=== PATIENT | female | born 1950 | race Caucasian/White ===

== ENCOUNTER 2023-02-02 11:34 | Inpatient (IN) | payer MEDICARE, OTHER ==
[2023-02-02 11:53] LABS: Basophils % (A) 1 %; Eosinophils % (A) 1 %; HCT 32.7 % (34.0-46.0); HGB 10.6 gm/dL (11.4-16.0); Hypochromasia Slight; Lymphocytes # (A) 0.8 k/uL (1.0-4.8); Lymphocytes % (A) 22 %; MCH 28.6 pg (25.0-35.0); MCHC 32.5 g/dL (31.0-37.0); MCV 88.1 fL (80.0-100.0); Mean Platelet Volume 7.7; Monocytes # (A) 0.3 k/uL (0-1.0); Monocytes % (A) 8 %; Neutrophils # (A) 2.5 k/uL (1.3-7.7); Neutrophils % (A) 65 %; Platelet Count 336 k/uL (150-450); Poikilocytosis Slight; RBC 3.71 m/uL (3.80-5.40); RDW 14.2 % (11.5-15.5); WBC 3.8 k/uL (3.8-10.6)
--- NOTE | 2023-02-02 12:00 | CT ---
EXAMINATION TYPE: CT brain wo con for TPA DATE OF EXAM: 02/02/2023 HISTORY: cva. Acute onset neurologic deficit. CT DLP: 1206.6 mGycm. Automated Exposure Control for Dose Reduction was Utilized. TECHNIQUE: CT scan of the head is performed without contrast. COMPARISON: None. FINDINGS: There is no acute intracranial hemorrhage or midline shift identified. There is mild diff use ventricular and sulcal prominence. Arce-white matter differentiation fairly well-preserved. Moder ate mucosal thickening with dependent fluid in the right maxillary sinus. The globes are intact bila terally. IMPRESSION: No acute intracranial hemorrhage or midline shift. There is mild diffuse cerebral atrop hy. There is acute on chronic right maxillary sinus disease.
--- NOTE | 2023-02-02 12:04 | ED ---
General Adult HPI - General Chief complaint: Neuro Symptoms/Deficit Stated complaint: Stroke Time Seen by Provider: 02/02/23 11:39 Source: patient, EMS, RN notes reviewed Mode of arrival: EMS Limitations: no limitations - History of Present Illness Initial comments: Patient is a pleasant 72-year-old female presenting to the emergency department with concern with weakness. Onset of symptoms was around 10:30, an hour prior to arrival. Patient was driving to go shopping. Patient felt sudden funny feeling and weakness left face and left arm. Symptoms have improved. Left arm feels back to normal at this time. No confusion or speech problems. No history of similar symptoms previously. - Related Data Home Medications Medication Instructions Recorded Confirmed Ascorbic Acid [Vitamin C] 1,000 mg PO DAILY 02/02/23 02/02/23 Cholecalciferol [Vitamin D3 (25 50 mcg PO DAILY 02/02/23 02/02/23 Mcg = 1000 Iu)] Multivit-Min/Iron/Folic/Lutein 1 tab PO DAILY 02/02/23 02/02/23 [Centrum Silver Women Tablet] Allergies Allergy/AdvReac Type Severity Reaction Status Date / Time iron Allergy Unknown Verified 02/02/23 13:03 methylprednisolone Allergy Unknown Verified 02/02/23 13:03 [From Medrol] Sulfa (Sulfonamide Allergy Unknown Verified 02/02/23 13:03 Antibiotics) Review of Systems ROS Statement: Those systems with pertinent positive or pertinent negative responses have been documented in the HPI. ROS Other: All systems not noted in ROS Statement are negative. Constitutional: Denies: fever Eyes: Denies: eye pain ENT: Denies: ear pain Respiratory: Denies: cough Cardiovascular: Denies: chest pain Endocrine: Denies: fatigue Gastrointestinal: Denies: abdominal pain Genitourinary: Denies: urgency Musculoskeletal: Denies: back pain Skin: Denies: rash Neurological: Reports: as per HPI, weakness. Denies: headache, confusion Past Medical History Past Medical History: No Reported History History of Any Multi-Drug Resistant Organisms: None Reported Past Surgical History: Orthopedic Surgery Additional Past Surgical History / Comment(s): Sinus surgery, wrist surgery, knee surgery, Past Psychological History: Anxiety Smoking Status: Never smoker Past Alcohol Use History: Rare Past Drug Use History: None Reported General Exam Limitations: no limitations General appearance: alert, in no apparent distress Head exam: Present: normocephalic Eye exam: Present: normal appearance, PERRL, EOMI ENT exam: Present: normal oropharynx Neck exam: Present: normal inspection Respiratory exam: Present: normal lung sounds bilaterally Cardiovascular Exam: Present: regular rate, normal rhythm GI/Abdominal exam: Present: soft. Absent: tenderness Extremities exam: Present: normal inspection Neurological exam: Present: alert, oriented X3, CN II-XII intact (Except for left facial weakness that does not involve the forehead) Expanded Neurological exam: Present: protecting the airway Speech: Present: fluid speech Cranial nerves: EOM's Intact: Normal, Facial Sensation: Normal, Facial Palsy with Forehead Movement: Abnormal Left (Left facial weakness. Forehead moves normally) Sensory exam: Upper Extremity Light Touch: Normal, Lower Extremity Light Touch: Normal Motor strength exam: RUE: 5, LUE: 5, RLE: 5, LLE: 5 Eye Response: (4) open spontaneously Motor Response: (6) obeys commands Verbal Response: (5) oriented Psychiatric exam: Present: normal affect, normal mood Skin exam: Present: normal color Course Vital Signs 02/02/23 02/02/23 02/02/23 11:58 12:00 12:10 Temperature 98.2 F Pulse Rate 92 92 88 Respiratory 18 18 18 Rate Blood Pressure 145/69 137/68 130/78 O2 Sat by Pulse 98 98 98 Oximetry 02/02/23 13:01 Temperature 98.2 F Pulse Rate 80 Respiratory 18 Rate Blood Pressure 131/68 O2 Sat by Pulse 97 Oximetry - Reevaluation(s) Reevaluation #1: 02/02/23 12:02 Case was discussed with Dr. Arroyo who agrees risks outweigh the benefit as NIH is only 1. Therefore TPA will not be provided EKG Findings - EKG Results: EKG: interpreted by ERMD, sinus rhythm, normal axis, normal QRS, normal ST/T Medical Decision Making - Medical Decision Making Was pt. sent in by a medical professional or institution (, PA, BOBBIN FIXER, urgent care, hospital, or usp...) When possible be specific @ -No Did you speak to anyone other than the patient for history (EMS, parent, family, police, friend...)? What history was obtained from this source @ -EMS helps provide history Did you review nursing and triage notes (agree or disagree)? Why? @ -I reviewed and agree with nursing and triage notes Were old charts reviewed (outside hosp., previous admission, EMS record, old EKG, old radiological studies, urgent care reports/EKG's, usp records)? Report findings @ -No old charts were reviewed Differential Diagnosis (chest pain, altered mental status, abdominal pain women, abdominal pain men, vaginal bleeding, weakness, fever, dyspnea, syncope, headache, dizziness, GI bleed, back pain, seizure, CVA, palpatations, mental health)? @ -Differential Weakness: Hypoglycemia, shock, sepsis, hyponatremia, anemia, infection, CO, ETOH, adverse medicine reaction, overdose, stroke, this is not meant to be an all-inclusive list. EKG interpreted by me (3pts min.). @ -As above X-rays interpreted by me (1pt min.). @ -None done CT interpreted by me (1pt min.). @ -CT report reviewed U/S interpreted by me (1pt. min.). @ -None done What testing was considered but not performed or refused? (CT, X-rays, U/S, labs)? Why? @ -None What meds were considered but not given or refused? Why? @ -TPA was considered however patient is not felt to be candidate secondary to low NIH Did you discuss the management of the patient with other professionals (professionals i.e. , PA, BOBBIN FIXER, lab, RT, psych nurse, manager social media, assayer helper, teacher, commissioned security officer, caseworker intake)? Give summary @ -I did speak with Dr. Mitchell who agrees patient is not a TPA candidate. Was smoking cessation discussed for >3mins.? @ -No Was critical care preformed (if so, how long)? @ -Critical care 32 minutes Were there social determinants of health that impacted care today? How? (H omelessness, low income, unemployed, alcoholism, drug addiction, transportation, low edu. Level, literacy, decrease access to med. care, senior living, rehab)? @ -No Was there de-escalation of care discussed even if they declined (Discuss DNR or withdrawal of care, Hospice)? DNR status @ -No What co-morbidities impacted this encounter? (DM, HTN, Smoking, COPD, CAD, Cancer, CVA, ARF, Chemo, Hep., AIDS, mental health diagnosis, sleep apnea, morbid obesity)? @ -None Was patient admitted / discharged? Hospital course, mention meds given and route, prescriptions, significant lab abnormalities, going to OR and other pertinent info. @ -Patient reevaluated and slightly further improved. Symptoms have not completely resolved however. Patient is updated on results and plan. Case was discussed with Dr. foreman, who will admit covering hospital call. Neurology will be placed on consult. Undiagnosed new problem with uncertain prognosis? @ -No Drug Therapy requiring intensive monitoring for toxicity (Heparin, Nitro, Insulin, Cardizem)? @ -No Were any procedures done? @ -No Diagnosis/symptom? @ -CVA Acute, or Chronic, or Acute on Chronic? @ -Acute Uncomplicated (without systemic symptoms) or Complicated (systemic symptoms)? @ -default Side effects of treatment? @ -No Exacerbation, Progression, or Severe Exacerbation? @ -No Poses a threat to life or bodily function? How? (Chest pain, USA, CO, pneumonia, PE, COPD, DKA, ARF, appy, cholecystitis, CVA, Diverticulitis, Homicidal, Suicidal, threat to staff... and all critical care pts) @ -No - Lab Data Result diagrams: 02/02/23 11:39 02/02/23 11:39 Lab Results 02/02/23 02/02/23 02/02/23 Range/Units 11:39 11:39 11:39 WBC 3.8 (3.8-10.6) k/uL RBC 3.71 L (3.80-5.40) m/uL Hgb 10.6 L (11.4-16.0) gm/dL Hct 32.7 L (34.0-46.0) % MCV 88.1 (80.0-100.0) fL MCH 28.6 (25.0-35.0) pg MCHC 32.5 (31.0-37.0) g/dL RDW 14.2 (11.5-15.5) % Plt Count 336 (150-450) k/uL MPV 7.7 Neutrophils % 65 % Lymphocytes % 22 % Monocytes % 8 % Eosinophils % 1 % Basophils % 1 % Neutrophils # 2.5 (1.3-7.7) k/uL Lymphocytes # 0.8 L (1.0-4.8) k/uL Monocytes # 0.3 (0-1.0) k/uL Eosinophils # 0.0 (0-0.7) k/uL Basophils # 0.0 (0-0.2) k/uL Hypochromasia Slight Poikilocytosis Slight PT 9.7 (9.0-12.0) sec INR 0.9 (<1.2) APTT 20.5 L (22.0-30.0) sec Sodium 140 (137-145) mmol/L Potassium 3.5 (3.5-5.1) mmol/L Chloride 106 (98-107) mmol/L Carbon Dioxide 27 (22-30) mmol/L Anion Gap 7 mmol/L BUN 12 (7-17) mg/dL Creatinine 0.73 (0.52-1.04) mg/dL Est GFR (CKD-EPI)AfAm >90 (>60 ml/min/1.73 sqM) Est GFR (CKD-EPI)NonAf 84 (>60 ml/min/1.73 sqM) Glucose 122 H (74-99) mg/dL Calcium 9.1 (8.4-10.2) mg/dL Total Bilirubin 0.3 (0.2-1.3) mg/dL AST 29 (14-36) U/L ALT 29 (4-34) U/L Alkaline Phosphatase 84 (38-126) U/L Creatine Kinase (30-135) U/L Total Protein 6.5 (6.3-8.2) g/dL Albumin 4.1 (3.5-5.0) g/dL 02/02/23 Range/Units 11:39 WBC (3.8-10.6) k/uL RBC (3.80-5.40) m/uL Hgb (11.4-16.0) gm/dL Hct (34.0-46.0) % MCV (80.0-100.0) fL MCH (25.0-35.0) pg MCHC (31.0-37.0) g/dL RDW (11.5-15.5) % Plt Count (150-450) k/uL MPV Neutrophils % % Lymphocytes % % Monocytes % % Eosinophils % % Basophils % % Neutrophils # (1.3-7.7) k/uL Lymphocytes # (1.0-4.8) k/uL Monocytes # (0-1.0) k/uL Eosinophils # (0-0.7) k/uL Basophils # (0-0.2) k/uL Hypochromasia Poikilocytosis PT (9.0-12.0) sec INR (<1.2) APTT (22.0-30.0) sec Sodium (137-145) mmol/L Potassium (3.5-5.1) mmol/L Chloride (98-107) mmol/L Carbon Dioxide (22-30) mmol/L Anion Gap mmol/L BUN (7-17) mg/dL Creatinine (0.52-1.04) mg/dL Est GFR (CKD-EPI)AfAm (>60 ml/min/1.73 sqM) Est GFR (CKD-EPI)NonAf (>60 ml/min/1.73 sqM) Glucose (74-99) mg/dL Calcium (8.4-10.2) mg/dL Total Bilirubin (0.2-1.3) mg/dL AST (14-36) U/L ALT (4-34) U/L Alkaline Phosphatase (38-126) U/L Creatine Kinase 77 (30-135) U/L Total Protein (6.3-8.2) g/dL Albumin (3.5-5.0) g/dL Critical Care Time Critical Care Time: Yes Total Critical Care Time: 32 Disposition Clinical Impression: Cerebrovascular accident (CVA) Disposition: ADMITTED IP TO THIS [facility] Is patient prescribed a controlled substance at d/c from ED?: No Referrals: None,Stated [Primary Care Provider] - 1-2 days Time of Disposition: 13:23
[2023-02-02 12:08] LABS: ALT 29 U/L (4-34); AST 29 U/L (14-36); African American GFR (CKD) >90 (>60 ml/min/1.73 sqM); Albumin 4.1 g/dL (3.5-5.0); Alkaline Phosphatase 84 U/L (38-126); Anion Gap 7 mmol/L; Blood Urea Nitrogen 12 mg/dL (7-17); Calcium 9.1 mg/dL (8.4-10.2); Carbon Dioxide 27 mmol/L (22-30); Chloride 106 mmol/L (98-107); Glucose 122 mg/dL (74-99); Non-African American GFR(CKD) 84 (>60 ml/min/1.73 sqM); Potassium 3.5 mmol/L (3.5-5.1); Sodium 140 mmol/L (137-145); Total Bilirubin 0.3 mg/dL (0.2-1.3); Total Protein 6.5 g/dL (6.3-8.2)
[2023-02-02 12:13] LABS: INR 0.9 (<1.2); Prothrombin Time 9.7 sec (9.0-12.0)
[2023-02-02 12:22] LABS: Partial Thromboplastin Time 20.5 sec (22.0-30.0)
--- NOTE | 2023-02-02 12:32 | CT ---
EXAMINATION TYPE: CT angio head neck DATE OF EXAM: 02/02/2023 COMPARISON: CT brain same day HISTORY: 72-year-old female, weakness, CVA TECHNIQUE: Contiguous axial scanning of the head and neck performed with IV Contrast, patient injecte d with 65cc mL of Isovue 370. Coronal/sagittal reconstructions performed. 3-D reconstructions generat ed on a dedicated workstation. CT DLP: 462.9 mGycm Automated exposure control for dose reduction was used. FINDINGS: NECK: There appears to be a large hiatal hernia extending to the subcarinal level. Some nodular prominence to the left lingual tonsil. Calcifications in the region of the bilateral pal atine tonsils suggests sequela of prior infection. Conventional arterial muscle branching anatomy. Vertebral arteries are patent throughout their course. Tortuous right common carotid artery. There is retropharyngeal course of the bilateral common carotid arteries. The bilateral common and in ternal carotid arteries are widely patent by NASCET criteria. [id number] degenerative change mid to lower cervical spine. HEAD: The vertebral and basilar arteries as well as the remainder of the posterior circulation appears patel nt. There is a small right posterior communicating artery visualized. The internal carotid arteries and remainder of the anterior circulation is patent. No aneurysmal change is identified. Dural venous sinuses appear patent. IMPRESSION: 1. NECK: WIDELY PATENT VERTEBRAL AND CAROTID ARTERIES OF THE NECK. THERE APPEARS TO BE A LARGE UNDERL KEVIN HIATAL HERNIA. CORRELATE FOR ANY ASSOCIATED SYMPTOMS. 2. HEAD: NO LARGE VESSEL INTRACRANIAL ARTERIAL OCCLUSION, SIGNIFICANT STENOSIS, OR ANEURYSMAL CHANGE IS SEEN.
--- NOTE | 2023-02-02 12:52 | XR ---
EXAMINATION TYPE: XR chest 2V DATE OF EXAM: 02/02/2023 COMPARISON: NONE HISTORY: Altered mental status and weakness. TECHNIQUE: Frontal and lateral views of the chest are obtained. FINDINGS: There is no focal air space opacity, pleural effusion, or pneumothorax seen. The cardiac silhouette size is mildly enlarged. Retrocardiac opacity consistent with large size hiatal hernia or intrathoracic stomach is present. Overlying EKG leads. The osseous structures are intact. IMPRESSION: Mild cardiomegaly without acute pulmonary process. Large hiatal hernia noted.
[2023-02-02] MEDS ORDERED: ASPIRIN 325 MG TAB PO STA (13:23)
[2023-02-02] MEDS: SODIUM CHLORIDE 0.9% 1,000 ML IV SCH ×2 (13:37→23:19)
[2023-02-02] MEDS ORDERED: PANTOPRAZOLE 40 MG/10 ML VIAL IVP STA (13:49)
[2023-02-02] MEDS ORDERED: LABETALOL 5 MG/ML VIAL MDV IVP PRN (13:58)
[2023-02-02] MEDS ORDERED: ACETAMINOPHEN TAB 325 MG TAB PO PRN (13:58)
--- NOTE | 2023-02-02 14:03 | P.HPIM ---
History of Present Illness H&P Date: 02/02/23 Patient is a 72-year-old female who presented to the ER department with left-sided facial droop. In the ER code stroke was activated. She had an NIH of 1 and therefore the stroke network did not recommend TPA administration. CT head and CT head and neck were unremarkable. Vital signs within normal limits. Patient seen and examined at bedside. She reports that she was driving to go shopping today and all of a sudden felt "terrible". She describes a heaviness on the left side of her chest associated with numbness and tingling down into her left arm and into her left face. She also felt some heaviness in her left arm. She did feel slightly short of breath. She also felt lightheaded. Her chest pain is now intermittent, her fce and arm numbness is better but not reso lved completely. Over the weekend she describes some left-sided abdominal pain. She did have emesis 1 which she describes as dark black. She reports that after her emesis she started feeling better and the pain went away. She does have a history of a large hiatal hernia and has required esophageal dilatation in the past. She has not been following with a primary care physician recently. She denies any recent cough, cold, fever, flu. She is independent in all her ADLs and IADLs. She does report that she has been struggling with a sinus infection. She also reports that her father had a stroke in his 60s. Vital signs reviewed General: nontoxic, no distress, appears at stated age Derm: warm, dry Eyes: EOMI, no lid lag, anicteric sclera, pupils equal round reactive to light ENT: Nose and ears atraumatic, no thrush, no pharyngeal erythema Cardiovascular: S1S2 reg, no murmur, positive posterior tibial pulse bilateral, no edema, capillary refill less than 2 seconds Lungs: clear to auscultation bilateral, no rhonchi, no rales, no wheeze, no accessory muscle use Abdominal: soft, nontender to palpation, no guarding, no appreciable organomegaly, normal bowel sounds Ext: no gross muscle atrophy, muscle strength 5 out of 5 in all 4 extremities, no contractures Neuro: CN II-XII grossly intact, light touch intact all 4 extremities, finger to nose within normal limits, Psych: Alert, oriented, appropriate affect Assessment: Left-sided facial droop-suspect acute CVA Left-sided chest pain Coffee-ground emesis 1 Hiatal hernia Anemia Acute on chronic right-sided maxillary sinusitis Imaging: CT brain-no acute intracranial hemorrhage or midline shift with mild diffuse cerebral atrophy and acute on chronic right maxillary sinus disease. CT of the head and neck-a widely patent vertebral and carotid arteries, large hiatal hernia Chest x-ray-mild cardiomegaly without acute pulmonary process, large hiatal hernia EKG is reviewed by myself reveals normal sinus rhythm at a rate of 76, normal axis, normal intervals, no significant ST-T wave changes Data Review: Laboratory analysis from 02/02/23 was reviewed and was remarkable for hemoglobin 10.6, glucose 122. Plan: -Admit patient to selective care unit area case was discussed extensively with Dr. Perez in the emergency department. -Check stat troponin and then 2 additional every 3 hours -EKG is nonischemic -Check echocardiogram -Telemetry -Protonix 40 mg IV push 1 now and then 40 mg IV push daily, serial CBCs given the need for aspirin and her episode of coffee-ground emesis in conjunction with mild anemia. -Check iron studies -Neuro checks, PT/OT, speech consultation, check lipid profile, check hemoglobin A1c -Consult neurology. -Start Flonase, Claritin, and Augmentin. The patient is admitted with an anticipated greater than 2 midnight stay for e valuation of CVA. Surrogate decision-maker: Full CODE STATUS: Full, does not want prolonged mechanical ventilation if neurologic not intact DVT prophylaxis: Lovenox Discussed with: Patient, nursing Anticipated discharge date: Pending clinical course Anticipated discharge place: Pending clinical course This dictation was prepared using [employer] voice recognition software. Though every attempt is made to correct errors during during dictation some may still exist. Past Medical History Additional Past Medical History / Comment(s): Hiatal hernia, esophageal stricture History of Any Multi-Drug Resistant Organisms: None Reported Past Surgical History: Orthopedic Surgery Additional Past Surgical History / Comment(s): Sinus surgery X 5, wrist surgery, knee surgery, EGD with esophageal dilatation Past Psychological History: Anxiety Smoking Status: Never smoker Past Alcohol Use History: Rare Past Drug Use History: None Reported - Past Family History Father Family Medical History: CVA/TIA, Myocardial Infarction ([place]) Medications and Allergies Home Medications Medication Instructions Recorded Confirmed Type Ascorbic Acid [Vitamin C] 1,000 mg PO DAILY 02/02/23 02/02/23 History Cholecalciferol [Vitamin D3 (25 50 mcg PO DAILY 02/02/23 02/02/23 History Mcg = 1000 Iu)] Multivit-Min/Iron/Folic/Lutein 1 tab PO DAILY 02/02/23 02/02/23 History [Centrum Silver Women Tablet] Allergies Allergy/AdvReac Type Severity Reaction Status Date / Time iron Allergy Unknown Verified 02/02/23 13:03 methylprednisolone Allergy Unknown Verified 02/02/23 13:03 [From Medrol] Sulfa (Sulfonamide Allergy Unknown Verified 02/02/23 13:03 Antibiotics) Physical Exam Osteopathic Statement: *. No significant issues noted on an osteopathic structural exam other than those noted in the History and Physical/Consult. Vitals: Vital Signs Temp Pulse Resp BP Pulse Ox 02/02/23 13:01 98.2 F 80 18 131/68 97 02/02/23 12:10 88 18 130/78 98 02/02/23 12:00 92 18 137/68 98 02/02/23 11:58 98.2 F 92 18 145/69 98 Intake and Output 02/01/23 02/02/23 02/02/23 22:59 06:59 14:59 Other: Weight 82.191 kg Results CBC & Chem 7: 02/02/23 11:39 02/02/23 11:39 Labs: Abnormal Lab Results - Last 24 Hours (Table) 02/02/23 02/02/23 02/02/23 Range/Units 11:39 11:39 11:39 RBC 3.71 L (3.80-5.40) m/uL Hgb 10.6 L (11.4-16.0) gm/dL Hct 32.7 L (34.0-46.0) % Lymphocytes # 0.8 L (1.0-4.8) k/uL APTT 20.5 L (22.0-30.0) sec Glucose 122 H (74-99) mg/dL
[2023-02-02] MEDS: AMOXIC-POT CLAV 875-125MG 1 EACH TAB PO SCH ×2 (15:15→20:47)
--- NOTE | 2023-02-02 16:37 | P.CNNES ---
History of Present Illness Consult date: 02/02/23 Requesting physician: Nima Perez Reason for Consult: CVA History of Present Illness: Patient is a 72-year-old right-handed female, otherwise very healthy, came to the hospital by ambulance today at 11:34 AM for acute stroke symptoms. Patient states that she was on her way to shopping when she started feeling different. She noticed numbness of the left side of her cheek, left arm region, that persistently got worse. She felt generalized weak, although left leg was weaker than the right. She denied any problem with the vision like blurred vision or double vision or loss of vision, besides what she has from her cataracts. There was no slurred speech. She also felt left-sided chest pressure. Patient pulled over and called EMS. As per EMS flow sheet, when they arrived, patient was sitting in a chair. Katelin ent mentioned that she was coming to [place] from [place] to do some shopping when she started to feel numbness in the left side of her face and left arm and slight headache. Patient called 911 and she was advised to put off and wait for EMS arrival. Patient denied any neck, chest or back pain or abdominal pain. No nausea or vomiting. Sensitivity stroke scale was completed with positive findings. EKG was unremarkable. Blood glucose 134, blood pressure 157/91, pulse rate 90, respiration 12, saturation 100%. CT head revealed no acute intracranial hemorrhage or midline shift. There is mild diffuse cerebral atrophy. There is acute on chronic right medullary sinus disease. Chest x-ray showed mild cardiomegaly without acute pulmonary process. Large hiatal hernia. EKG shows sinus rhythm. Left atrial enlargement. CBC with normal WBC hemoglobin 10.6, platelets 336. PT/PTT normal, Chem-20 normal. Troponin pending. Home medications include multivitamin, vitamin D. Patient does not take any antiplatelet medication. Patient denies diabetes, hypertension and hyperlipidemia. She has never smoked, does not drink alcohol. No previous history of strokes or TIA. Patient says that since her stroke symptoms, she has been having a feeling as if headache is coming involving the frontal or occipital region, but it comes and goes. At present she has no headache. Denies any recent or remote head or neck injury. Patient states that even walking to the bathroom, she felt slightly different, slightly weak. Patient states the numbness is improving, but she still has some paresthesias of the left facial region, mainly from the left lower eyelid to the left perioral region. Review of Systems Constitutional: Denies chills, Denies fever Eyes: bilateral blurred vision, denies diplopia, denies pain, denies loss of vision Ears: deny: decreased hearing, ear discharge Ears, nose, mouth and throat: Reports headache, Denies sore throat, Denies voice changes Cardiovascular: Reports chest pain, Denies dyspnea on exertion, Denies shortness of breath Respiratory: Denies cough, Denies excessive sputum Gastrointestinal: Denies abdominal pain, Denies diarrhea, Denies nausea, Denies vomiting Genitourinary: Denies dysuria, Denies hematuria Musculoskeletal: Reports muscle weakness, Denies myalgias Integumentary: Denies pruritus, Denies rash Neurological: Reports as per HPI Psychiatric: Denies anxiety, Denies depression Endocrine: Denies fatigue, Denies weight change Hematologic/Lymphatic: Denies easy bleeding, Denies easy bruising, Denies lymphadenopathy Past Medical History Past Medical History: No Reported History Additional Past Medical History / Comment(s): Hiatal hernia, esophageal stricture History of Any Multi-Drug Resistant Organisms: None Reported Past Surgical History: Orthopedic Surgery Additional Past Surgical History / Comment(s): Sinus surgery X 5, wrist surgery, knee surgery, EGD with esophageal dilatation Past Psychological History: Anxiety Smoking Status: Never smoker Past Alcohol Use History: Rare Past Drug Use History: None Reported - Past Family History Father Family Medical History: CVA/TIA, Myocardial Infarction ([place]) Medications and Allergies Home Medications Medication Instructions Recorded Confirmed Type Ascorbic Acid [Vitamin C] 1,000 mg PO DAILY 02/02/23 02/02/23 History Cholecalciferol [Vitamin D3 (25 50 mcg PO DAILY 02/02/23 02/02/23 History Mcg = 1000 Iu)] Multivit-Min/Iron/Folic/Lutein 1 tab PO DAILY 02/02/23 02/02/23 History [Centrum Silver Women Tablet] Allergies Allergy/AdvReac Type Severity Reaction Status Date / Time iron Allergy Unknown Verified 02/02/23 13:03 methylprednisolone Allergy Unknown Verified 02/02/23 13:03 [From Medrol] Sulfa (Sulfonamide Allergy Unknown Verified 02/02/23 13:03 Antibiotics) Physical Examination - Vital Signs Vital Signs: Vital Signs Temp Pulse Resp BP Pulse Ox 02/02/23 13:01 98.2 F 80 18 131/68 97 02/02/23 12:10 88 18 130/78 98 02/02/23 12:00 92 18 137/68 98 02/02/23 11:58 98.2 F 92 18 145/69 98 Intake and Output 02/01/23 02/02/23 02/02/23 22:59 06:59 14:59 Other: Weight 82.191 kg Patient is an elderly female, very pleasant, in no acute distress. Patient is alert awake oriented to time place and person. Speech and language functions are normal. Patient can name and repeat very well. No aphasia or dysarthria. Attention, concentration and fund of knowledge is adequate. On cranial nerve examination, pupils are equal, round and reacting to light, visual vega are full on confrontation, with no neglect on double simultaneous stimulation. Extraocular muscles are intact with no nystagmus. Patient has left facial weakness, central type, with sparing of the forehead region. Her tongue protrudes to the midline. Palatal elevation and sensation normal, hearing and shoulder shrug normal, facial sensation normal. On muscle strength testing, there is no pronator drift and the strength is normal in arms and legs distally and proximally. Deep tendon reflexes are symmetric 2-2+ all over and plantars downgoing bilaterally. Sensory to touch is equal with no neglect on double simultaneous stimulation. Cerebellar function showed no ataxia for [id number] testing. No dysdiadochokinesia. No ataxia for [id number] testing on either side. Tone and bulk of muscles normal. Gait deferred.. On general examination, there is no carotid bruit or murmur, S1-S2 audible. Chest is clear on consultation. Abdomen is soft nontender. No organomegaly, bowel sounds present. Peripheral pulses are present. No edema. Results - Laboratory Findings CBC and BMP: 02/02/23 11:39 02/02/23 11:39 Abnormal Lab Findings: Abnormal Labs 02/02/23 02/02/23 02/02/23 11:39 11:39 11:39 RBC 3.71 L Hgb 10.6 L Hct 32.7 L Lymphocytes # 0.8 L APTT 20.5 L Glucose 122 H Assessment and Plan Assessment: * Probable stroke/TIA manifesting with left sided weakness (facial weakness, left facial and brachial paresthesias). Patient's current NIH stroke scale is 1. Patient was considered not a candidate for TPA. * Left-sided chest pressure, rule out cardiac cause. Plan: * MRI of the brain without contrast, evaluate for acute CVA * 2-D echo with bubble study to rule out PFO * CTA head and neck showed: Widely patent vertebral and carotid arteries of the neck. No large vessel intracranial arterial occlusion, significant stenosis or aneurysm. * Fasting a.m. lipid panel * Hemoglobin A1c * Permissive hypertension for next 24-48 hours. Patient's blood pressure is well controlled. * Close neuro checks. * Patient was not taking any antiplatelet medication at home. Patient has received aspirin 325 mg in the ER. Start patient on DAP with aspirin and Plavix 75 mg for 21 days. Thereafter Plavix can be discontinued and patient will be continued on aspirin indefinitely. * Telemetry monitoring rule out any arrhythmia * DVT prophylaxis: Heparin 5000 units subcu every 8 hours * PT OT. * Neurology will continue ot follow. Thank you for the consult.
[2023-02-02 16:41] LABS: Glucose,Whole Blood 91 mg/dL (70-110)
[2023-02-02] MEDS: HEPARIN SODIUM,PORCINE/PF 5,000 UNIT/0.5 ML SYRINGE SQ SCH ×2 (16:49→23:17)
[2023-02-02] MEDS: CLOPIDOGREL 75 MG TAB PO SCH (16:49)
[2023-02-02] MEDS: FLUTICASONE 50MCG/SPRAY NASAL 16GM EA NOSTRIL SCH (16:50)
[2023-02-02 20:09] LABS: Glucose,Whole Blood 140 mg/dL (70-110)
[2023-02-02] MEDS: ATORVASTATIN 80 MG TAB PO SCH (20:47)
[2023-02-03 06:03] LABS: Glucose,Whole Blood 98 mg/dL (70-110)
--- NOTE | 2023-02-03 08:48 | MR ---
EXAMINATION TYPE: MR brain wo con DATE OF EXAM: 02/03/2023 COMPARISON: CT brain from yesterday HISTORY: Acute onset neuro deficit on admission one day earlier. TECHNIQUE: Multiplanar, multisequence imaging of the brain and brainstem is performed without IV cont rast. FINDINGS: Diffusion weighted images demonstrate no evidence of a recent infarct or other diffusion abnormality. There is mild ventricular and sulcal prominence. There is rare tiny focus of T2 hyperintensity throug hout the white matter bilaterally. Midline structures demonstrate normal morphology. The craniocervical junction appears within normal limits. Normal vascular flow voids are present. Mild mucosal thickening involving ethmoid sinuses red aterally. Pecf-lv-[id number] mucosal thickening is involving the right frontal sinus. Dependent density in the inferior posterior left maxillary sinus likely reflects 1.1 cm mucous retention cyst or polyp . Globes are intact bilaterally. IMPRESSION: 1. No MRI evidence for a recent infarct. 2. There is mild diffuse cerebral atrophy and chronic paranasal sinus disease.
[2023-02-03] MEDS ORDERED: ASPIRIN 325 MG TAB PO SCH (09:00)
[2023-02-03] MEDS: AMOXIC-POT CLAV 875-125MG 1 EACH TAB PO SCH ×2 (09:30→20:08)
[2023-02-03] MEDS: LORATADINE 10 MG TAB PO SCH (09:30)
[2023-02-03] MEDS: FLUTICASONE 50MCG/SPRAY NASAL 16GM EA NOSTRIL SCH (09:31)
[2023-02-03] MEDS: CLOPIDOGREL 75 MG TAB PO SCH (09:31)
[2023-02-03] MEDS: SODIUM CHLORIDE 0.9% 1,000 ML IV SCH ×2 (09:31→20:06)
[2023-02-03] MEDS: HEPARIN SODIUM,PORCINE/PF 5,000 UNIT/0.5 ML SYRINGE SQ SCH ×3 (09:31→22:58)
[2023-02-03] MEDS: PANTOPRAZOLE 40 MG/10 ML VIAL IVP SCH (09:31)
[2023-02-03 10:40] LABS: HCT 33.2 % (34.0-46.0); HGB 10.6 gm/dL (11.4-16.0); Hypochromasia Moderate; MCH 29.1 pg (25.0-35.0); MCHC 31.9 g/dL (31.0-37.0); MCV 91.2 fL (80.0-100.0); Mean Platelet Volume 7.8; Platelet Count 312 k/uL (150-450); RBC 3.63 m/uL (3.80-5.40); RDW 13.9 % (11.5-15.5); WBC 3.3 k/uL (3.8-10.6)
[2023-02-03 11:32] LABS: Glucose,Whole Blood 96 mg/dL (70-110)
[2023-02-03 11:44] VITALS: BMI 32.1
[2023-02-03 16:31] LABS: Glucose,Whole Blood 111 mg/dL (70-110)
[2023-02-03 17:05] LABS: Chol/HDL Ratio 2.75 Ratio; LDL Cholesterol,Calculated 68.2 mg/dL (0.0-131.0)
--- NOTE | 2023-02-03 17:40 | P.PN ---
Subjective Progress Note Date: 02/03/23 (delayed charting seen at 0910) Patient is a 72-year-old female who presented to the ER department with left- sided facial droop. In the ER code stroke was activated. She had an NIH of 1 and therefore the stroke network did not recommend TPA administration. CT head and CT head and neck were unremarkable. Vital signs within normal limits. She was given an aspirin and statin. She was admitted. She was seen by neurology. She underwent MRI of the brain which was negative and she did have improvement in her symptoms consistent with TIA. She was doing well. She was evaluated by physical therapy, occupational therapy, and speech therapy. Her telemetry was negative for any signs of arrhythmia. Patient seen and examined at bedside. She is feeling better today than yesterd ay. She denies any recurrent chest pain. Her numbness and tingling is getting better. She feels as though her weakness is completely resolved. Vital signs reviewed General: nontoxic, no distress, appears at stated age Cardiovascular: S1S2 reg, no murmur, positive posterior tibial pulse bilateral, Lungs: CTA bilateral, no rhonchi, no rales , no accessory muscle use Abdominal: soft, nontender to palpation, no guarding, no appreciable organomegaly Ext: no gross muscle atrophy, no edema, no contractures Neuro: Left facial droop, muscle strength intact bilateral lower extremities and upper extremities. Equal. Psych: Alert, oriented, appropriate affect Assessment: TIA Left-sided chest pain, ACS ruled out Coffee-ground emesis 1 Hiatal hernia Anemia Acute on chronic right-sided maxillary sinusitis Imaging: MRI brain: No recent infarct, mild diffuse cerebral atrophy and chronic paranasal sinus disease Data Review: CBC reviewed and white blood cell count 3.3, hemoglobin 10.6, hematocrit 33.2, A1c 5.5, total cholesterol 140, triglycerides 104, LDL 68.2, HDL 51. Troponin remained negative at less than 0.012. Plan: -Case discussed with neurology. Patient has negative MRI but continues to have some left-sided facial droop that has slowly been improving. Suspect that this is a TIA. -Continue with aspirin 81 mg daily and Plavix 75 mg daily -Patient's blood pressures have been well controlled no need for antihyper tensives -Patient's cholesterol profile is within normal limits and A1c is 5.5. Will decrease Lipitor to 40 mg daily -Telemetry reviewed with no significant arrhythmias. Anticipate home in a.m. after echocardiogram is available. Patient had a delay of discharge his echo is still not available. This dictation was prepared using [employer] voice recognition software. Though every attempt is made to correct errors during during dictation some may still exist. Objective - Vital Signs Vital signs: Vital Signs Temp 98.0 F 02/03/23 08:00 Pulse 76 02/03/23 16:00 Resp 18 02/03/23 14:00 BP 117/74 02/03/23 16:00 Pulse Ox 91 L 02/03/23 16:00 FiO2 Intake & Output 02/02/23 02/03/23 02/03/23 18:59 06:59 18:59 Intake Total 420 800 580 Balance 420 800 580 Weight 82.191 kg 82.191 kg Intake: Intake, IV Titration 300 800 100 Amount Sodium Chloride 0.9% 1, 300 800 100 000 ml @ 100 mls/hr IV . Q10H [facility] Rx#:[id number] Oral 120 480 Other: Voiding Method Toilet Toilet Toilet # Voids 1 - Labs CBC & Chem 7: 02/03/23 09:56 02/02/23 11:39 Labs: Abnormal Lab Results - Last 24 Hours (Table) 02/02/23 02/03/23 02/03/23 Range/Units 20:08 09:56 16:24 WBC 3.3 L (3.8-10.6) k/uL RBC 3.63 L (3.80-5.40) m/uL Hgb 10.6 L (11.4-16.0) gm/dL Hct 33.2 L (34.0-46.0) % POC Glucose (mg/dL) 140 H 111 H (70-110) mg/dL
[2023-02-03] MEDS: ATORVASTATIN 80 MG TAB PO SCH (20:08)
[2023-02-03 20:14] LABS: Glucose,Whole Blood 93 mg/dL (70-110)
[2023-02-04 05:05] VITALS: TEMP 97.3
[2023-02-04] MEDS: SODIUM CHLORIDE 0.9% 1,000 ML IV SCH (05:17)
[2023-02-04 05:55] LABS: Glucose,Whole Blood 92 mg/dL (70-110)
[2023-02-04 07:53] VITALS: BP 138/74; RESP 16
[2023-02-04] MEDS: AMOXIC-POT CLAV 875-125MG 1 EACH TAB PO SCH (07:53)
[2023-02-04] MEDS: PANTOPRAZOLE 40 MG/10 ML VIAL IVP SCH (07:54)
[2023-02-04] MEDS: LORATADINE 10 MG TAB PO SCH (07:54)
[2023-02-04] MEDS: CLOPIDOGREL 75 MG TAB PO SCH (07:54)
[2023-02-04] MEDS: HEPARIN SODIUM,PORCINE/PF 5,000 UNIT/0.5 ML SYRINGE SQ SCH (07:54)
[2023-02-04] MEDS: FLUTICASONE 50MCG/SPRAY NASAL 16GM EA NOSTRIL SCH (07:54)
[2023-02-04 08:03] VITALS: PULSE 83
--- NOTE | 2023-02-04 08:49 | CA ---
Transthoracic Echo Report Name: Rosa Vega Age: 72 Gender: F : 1950 Exam Date: 02/03/2023 12:50 Exam Location: [facility] Ht (in): 63 Wt (lb): 181 Ordering Physician: Nima Perez DO Attending/Referring Phys: [employer] Account Executive Jovita De La Rosa RDCS Procedure CPT: Indications: Thrombus Cardiac Hx: Technical Quality: Technically difficult study Contrast 1: Lumason Total Dose (mL): 4 Contrast 2: Total Dose (mL): MEASUREMENTS (Male / Female) Normal Values 2D ECHO LV Diastolic Diameter PLAX 3.5 cm 4.2 - 5.9 / 3.9 - 5.3 cm LV Systolic Diameter PLAX 2.3 cm IVS Diastolic Thickness 1.2 cm 0.6 - 1.0 / 0.6 - 0.9 cm LVPW Diastolic Thickness 0.9 cm 0.6 - 1.0 / 0.6 - 0.9 cm LV Relative Wall Thickness 0.6 RV Internal Dim ED PLAX 2.5 cm LVOT Diameter 1.7 cm LA Volume 37.9 cm??? 18 - 58 / 22 - 52 cm??? M-MODE Aortic Root Diameter MM 2.7 cm LA Systolic Diameter MM 3.5 cm LA Ao Ratio MM 1.3 DOPPLER AV Peak Velocity 148.6 cm/s AV Peak Gradient 8.8 mmHg AV Mean Velocity 114.3 cm/s AV Mean Gradient 5.6 mmHg AV Velocity Time Integral 32.6 cm LVOT Peak Velocity 110.7 cm/s LVOT Peak Gradient 4.9 mmHg AV Area Cont Eq pk 1.7 cm??? MV Area PHT 3.9 cm??? Mitral E Point Velocity 85.5 cm/s Mitral A Point Velocity 69.7 cm/s Mitral E to A Ratio 1.2 MV Deceleration Time 195.6 ms TR Peak Velocity 280.4 cm/s TR Peak Gradient 31.5 mmHg Right Ventricular Systolic Press 35.7 mmHg FINDINGS Left Ventricle Mildly increased septal wall thickness. Normal left ventricular systolic function with no obvious regional wall motion abnormalities. Left ventricular cavity size normal. Left ventricular ejection fraction is estimated at 55 %. Normal left ventricular diastolic filling pattern. Right Ventricle Normal right ventricular size and function. Mild pulmonary hypertension. Right Atrium Normal right atrial size. Left Atrium Normal left atrial size. Mitral Valve Structurally normal mitral valve. Trace to mild mitral regurgitation. Aortic Valve No aortic valve stenosis or regurgitation. Tricuspid Valve Structurally normal tricuspid valve. Mild tricuspid regurgitation. Pulmonic Valve Structurally normal pulmonic valve. Pericardium No pericardial effusion. Aorta Normal size aortic root and proximal ascending aorta. CONCLUSIONS Normal LV systolic function Normal RV systolic function. Mild pulmonary hypertension Overall normal intracardiac valves No evidence of pericardial effusion Previewed by: Dr. Gene Weber MD (Electronically Signed) Final Date: 04 February 2023 08:48
[2023-02-04] MEDS ORDERED: ASPIRIN 81 MG PO SCH (09:00)
--- NOTE | 2023-02-04 09:06 | P.PN ---
Subjective Progress Note Date: 02/03/23 Patient was seen for a follow-up. Patient states her symptoms are almost 85% gone. She has very mild paresthesias of the left side of the cheek and very mild left facial droop. Denies any symptoms in the extremities. Denies any headache at this time. Objective - Vital Signs Vital signs: Vital Signs Temp 97.8 F 02/03/23 04:00 Pulse 77 02/03/23 04:00 Resp 18 02/03/23 04:00 BP 125/74 02/03/23 04:00 Pulse Ox 98 02/03/23 04:00 FiO2 Intake & Output 02/02/23 02/03/23 02/03/23 18:59 06:59 18:59 Intake Total 420 800 480 Balance 420 800 480 Weight 82.191 kg Intake: Intake, IV Titration 300 800 Amount Sodium Chloride 0.9% 1, 300 800 000 ml @ 100 mls/hr IV . Q10H [facility] Rx#:[id number] Oral 120 480 Other: Voiding Method Toilet Toilet # Voids 1 - Exam Patient's mental status, speech and language functions are normal. Cranial nerves again significant for very mild left facial weakness, central type. There is complete sparing of the upper facial region. Patient denies any hyperacusis, or alteration of taste sensation. There is no pronator drift and the strength is normal in arms and legs. Se nsations are equal. No ataxia. - Labs CBC & Chem 7: 02/03/23 09:56 02/02/23 11:39 Labs: Abnormal Lab Results - Last 24 Hours (Table) 02/02/23 02/02/23 02/02/23 Range/Units 11:39 11:39 11:39 WBC (3.8-10.6) k/uL RBC 3.71 L (3.80-5.40) m/uL Hgb 10.6 L (11.4-16.0) gm/dL Hct 32.7 L (34.0-46.0) % Lymphocytes # 0.8 L (1.0-4.8) k/uL APTT 20.5 L (22.0-30.0) sec Glucose 122 H (74-99) mg/dL POC Glucose (mg/dL) (70-110) mg/dL 02/02/23 02/03/23 Range/Units 20:08 09:56 WBC 3.3 L (3.8-10.6) k/uL RBC 3.63 L (3.80-5.40) m/uL Hgb 10.6 L (11.4-16.0) gm/dL Hct 33.2 L (34.0-46.0) % Lymphocytes # (1.0-4.8) k/uL APTT (22.0-30.0) sec Glucose (74-99) mg/dL POC Glucose (mg/dL) 140 H (70-110) mg/dL Assessment and Plan Assessment: * Probable stroke/TIA manifesting with left sided weakness (left facial weakness, left facial and brachial paresthesias). Patient's current NIH stro ke scale is 1(left facial droop). Patient was considered not a candidate for TPA. * Left-sided chest pressure, rule out cardiac cause. * Possible hypertension Plan: * MRI of the brain without contrast is normal with no evidence of an acute infarct. Mild diffuse cerebral atrophy and chronic paranasal sinus disease. I personally reviewed MRI, agree with the findings, no acute ischemic process. * Patient still has very mild deficit with left facial weakness, but MRI of the brain came back negative for any acute stroke. I reexamined the patient, and there is no involvement of the upper facial region. Doubt Hyde's palsy because of sparing of the upper facial region, and also that patient believes her left facial weakness, and left-sided facial paresthesias is improving, which is also against Hyde's palsy. * 2-D echo still pending at this time. * CTA head and neck showed: Widely patent vertebral and carotid arteries of the neck. No large vessel intracranial arterial occlusion, significant stenosis or aneurysm. * Fasting a.m. lipid panel cholesterol 140, LDL 68, HDL 51 and triglycerides 104 * Hemoglobin A1c 5.5. * Optimize control of blood pressure. Patient's blood pressure is well controlled. * Patient was not taking any antiplatelet medication at home. Patient has received aspirin 325 mg in the ER. Start patient on DAP with aspirin and Plavix 75 mg for 21 days. Thereafter Plavix can be discontinued and patient will be continued on aspirin 81 mg indefinitely. * Telemetry monitoring rule out any arrhythmia * DVT prophylaxis: Heparin 5000 units subcu every 8 hours * Neurologically clear for discharge if the 2-D echo comes back normal. Discussed with Dr Lynn in detail.
--- NOTE | 2023-02-04 10:20 | P.DS ---
Providers Date of admission: 02/02/23 13:25 Expected date of discharge: 02/04/23 Attending physician: Lisa Mendes DO Consults: 02/02/23 13:24 Consult Physician Urgent Consulting Provider: Kannan Cabrera Consult Reason/Comments: cva Do you want consulting provider notified?: Yes Primary care physician: Stated None Hospital Course: Discharge Diagnosis: TIA Left-sided chest pain, ACS ruled out Coffee-ground emesis 1 Hiatal hernia Anemia Acute on chronic right-sided maxillary sinusitis Hospital Course: Patient is a 72-year-old female who presented to the ER department with left- sided facial droop. In the ER code stroke was activated. She had an NIH of 1 and therefore the stroke network did not recommend TPA administration. CT head and CT head and neck were unremarkable. Vital signs within normal limits. She was given an aspirin and statin. She was admitted. She was seen by neurology. She underwent MRI of the brain which was negative and she did have improvement in her symptoms consistent with TIA. She was doing well. She was evaluated by physical therapy, occupational therapy, and speech therapy. Her telemetry was negative for any signs of arrhythmia. She is determined stable for discharge. Follow-up: Patient needs to establish with a primary care physician. She should follow up with cardiology or her primary care doctor for possible event monitor. She'll take aspirin 81 mg daily. She will take Plavix 75 mg daily for the next 28 days this can then be discontinued. She will take Lipitor 40 mg daily. She will start on protonix related to her hiatal hernia and slow release iron. Imaging: MRI brain: No recent infarct, mild diffuse cerebral atrophy and chronic paranasal sinus disease Chest x-ray: Mild cardiomegaly without acute pulmonary process, large hiatal hernia CTA head and neck: Mildly patent vertebral and carotid arteries of the neck, no large vessel intracranial arterial occlusion, significant stenosis, aneurysmal change Echo: Mild Pulmonary HTN Patient seen and examined at bedside. She has No complaints at this time, her numbness is almost completely resolved. We discussed the follow-up instructions as above. Vital signs reviewed and stable. General: nontoxic, no distress, appears at stated age Derm: warm, dry Head: atraumatic, normocephalic, symmetric Eyes: EOMI, no lid lag, anicteric sclera Mouth: no lip lesion, mucus membranes moist Cardiovascular: S1S2 reg, no murmur, positive posterior tibial pulse bilateral, Lungs: CTA bilateral, no rhonchi, no rales , no accessory muscle use Abdominal: soft, nontender to palpation, no guarding, no appreciable organomegaly Ext: no gross muscle atrophy, no edema, no contractures Neuro: Left facial droop Psych: Alert, oriented, appropriate affect A total of 32 minutes of time were spent preparing this complex discharge summary. Patient was discharged on 02/04/23. This dictation was prepared using [employer] voice recognition software. Though every attempt is made to correct errors during during dictation some may still exist. Patient Condition at Discharge: Stable Plan - Discharge Summary Discharge Rx Participant: Yes New Discharge Prescriptions: New Amoxic-Pot Clav 875-125Mg [Augmentin 875-125] 1 each PO Q12HR #7 tab Clopidogrel [Plavix] 75 mg PO DAILY #28 tab Ferrous Sulfate [Slow Fe] 142 mg PO DAILY #30 tab Aspirin 81 mg PO DAILY tab Atorvastatin Calcium [Lipitor] 40 mg PO DAILY #30 tab Continue Multivit-Min/Iron/Folic/Lutein [Centrum Silver Women Tablet] 1 tab PO DAILY Ascorbic Acid [Vitamin C] 1,000 mg PO DAILY Cholecalciferol [Vitamin D3 (25 Mcg = 1000 Iu)] 50 mcg PO DAILY Discharge Medication List Ascorbic Acid [Vitamin C] 1,000 mg PO DAILY 02/02/23 [History] Cholecalciferol [Vitamin D3 (25 Mcg = 1000 Iu)] 50 mcg PO DAILY 02/02/23 [History] Multivit-Min/Iron/Folic/Lutein [Centrum Silver Women Tablet] 1 tab PO DAILY 02/02/23 [History] Amoxic-Pot Clav 875-125Mg [Augmentin 875-125] 1 each PO Q12HR #7 tab 02/04/23 [Rx] Aspirin 81 mg PO DAILY tab 02/04/23 [Rx] Atorvastatin Calcium [Lipitor] 40 mg PO DAILY #30 tab 02/04/23 [Rx] Clopidogrel [Plavix] 75 mg PO DAILY #28 tab 02/04/23 [Rx] Ferrous Sulfate [Slow Fe] 142 mg PO DAILY #30 tab 02/04/23 [Rx] Follow up Appointment(s)/Referral(s): Ramirez Lua MD [REFERRING] - 1 Week Jose Kerns DO [STAFF PHYSICIAN] - As Needed (for posisble event monitor) Patient Instructions/Handouts: Transient Ischemic Attack (DC) Activity/Diet/Wound Care/Special Instructions: Activity: As tolerated Diet: heart healthy Special Instructions: You should have an event monitor after discharge Thank you for trusting us with your care. We wish you well on your journey to better health. Discharge Disposition: HOME SELF-CARE
== END 2023-02-04 10:44 | disposition home or self-care (01) | DRG 69 ==
LOC: EC 11:34 → 3SCARD 13:25
PROVIDERS: ADMIT Internal Medicine; ATTEND Internal Medicine
PROC: B246ZZZ Ultrasonography of Right and Left Heart (ICD-10-PCS; principal; 2023-02-03)
DX: G45.9 Transient cerebral ischemic attack, unspecified (principal); G81.94 Hemiplegia, unspecified affecting left nondominant side; K92.0 Hematemesis; E11.36 Type 2 diabetes mellitus with diabetic cataract; F41.9 Anxiety disorder, unspecified; R29.810 Facial weakness; R07.9 Chest pain, unspecified; I27.29 Other secondary pulmonary hypertension; I08.1 Rheumatic disorders of both mitral and tricuspid valves; R07.89 Other chest pain; G31.89 Other specified degenerative diseases of nervous system; D64.9 Anemia, unspecified; J01.01 Acute recurrent maxillary sinusitis; J32.0 Chronic maxillary sinusitis; K44.9 Diaphragmatic hernia without obstruction or gangrene; R29.701 NIHSS score 1; Z79.02 Long term (current) use of antithrombotics/antiplatelets; Z79.82 Long term (current) use of aspirin; Z79.899 Other long term (current) drug therapy; Z86.73 Personal history of transient ischemic attack (TIA), and cerebral infarction without residual deficits; Z88.2 Allergy status to sulfonamides; Z88.8 Allergy status to other drugs, medicaments and biological substances
CPT/HCPCS: 36415; 70450; 70496; 70498; 70551; 71046; 80053; 80061; 82550; 83036; 84484; 85025; 85027; 85610; 85730; 93005; 93306; 94760; 96374; 99291